=== PATIENT | male | born 1960 | race Caucasian/White ===

== ENCOUNTER 2020-08-28 10:25 | Outpatient (REF) | payer OTHER, SELFPAY ==
[2020-08-28 13:54] LABS: MANUAL DIFF FLAG NO
[2020-08-28 14:04] LABS: Basophils Percent Auto 0.5 % (0-2); Eosinophils Absolute Auto 0.2 X10*3/uL (0.0-0.4); Eosinophils Percent Auto 2.6 % (0-4); Hemoglobin 13.7 g/dl (14.0-18.0); Imm Gran Abs Auto 0.02 X10*3/uL (0.00-0.03); Imm Gran Pct Auto 0.3 % (0.0-0.4); Lymphocytes Absolute Auto 1.3 X10*3/uL (1.2-4.9); Lymphocytes Percent Auto 16.8 % (20-40); Mean Corpuscular HGB Conc 33.4 g/dl (31.0-36.0); Mean Corpuscular Hemoglobin 30.4 pg (27.0-33.0); Mean Corpuscular Volume 91.1 fL (80-98); Mean Platelet Volume 10.8 fL (9.4-12.4); Monocytes Absolute Auto 0.4 X10*3/uL (0.1-1.2); Neutrophils Absolute Auto 5.7 X10*3/uL (2.0-8.3); Neutrophils Percent Auto 74.8 % (45-73); Platelet Count 191 X10*3/uL (160-400); Red Cell Distribution Width 12.5 % (11.0-16.0); White Blood Count 7.6 X10*3/uL (4.8-10.8)
[2020-08-28 14:21] LABS: Alanine Aminotransferase 20 U/L (0-40); Albumin Level 4.2 g/dL (3.5-5.0); Alkaline Phosphatase 60 U/L (39-117); Amylase 39 U/L (28-100); Anion Gap 12 (12-20); Aspartate Amino Transferase 21 U/L (5-37); Bilirubin Direct 0.5 mg/dL (0.0-0.5); Bilirubin Total 1.3 mg/dL (0.0-1.0); Blood Urea Nitrogen 17 mg/dL (9-16); C Reactive Protein 0.72 mg/dL (< or = 0.50); Carbon Dioxide 26 mmol/L (22-29); Chloride 103 mmol/L (96-108); Estimated Glomerular Filt Rate > 60; Glucose Random 90 mg/dL (60-115); Lipase 12 U/L (8-78); Potassium 4.3 mmol/L (3.3-5.1); Sodium 137 mmol/L (135-145); Total Protein 6.8 g/dL (6.5-8.0)
[2020-08-28 14:47] LABS: Erythrocyte Sedimentation Rate 5 MM/HR (0-15); TSH reflex Free T4 0.51 uIU/mL (0.32-4.0)
[2020-08-29 14:21] LABS: Immunoglobulin A 226 mg/dL (70-320)
[2020-09-01 15:17] LABS: Gliadin Deamidated IgA Ab 6 Units; Gliadin Deamidated IgG Ab 7 Units; Transglutaminase Ab IgG 2 U/mL; Transglutaminase IgA 1 U/mL
[2020-09-09 13:13] LABS: Endomysial IgA Antibody Negative (Negative)
== END 2020-08-28 10:26 | disposition home or self-care (01) ==
LOC: HO.10HDL 10:25
PROVIDERS: Visit Provider Internal Medicine
DX: R10.84 Generalized abdominal pain (principal)
CPT/HCPCS: 36415; 80051; 80076; 82150; 82565; 82784; 82947; 83516; 83690; 84443; 84520; 85025; 85652; 86140; 86255; 86256

== ENCOUNTER 2020-10-08 15:10 | Outpatient (REF) | payer OTHER, SELFPAY ==
[2020-10-08 16:09] LABS: Blood Urea Nitrogen 21 mg/dL (9-16); Estimated Glomerular Filt Rate > 60
== END 2020-10-08 15:11 | disposition home or self-care (01) ==
LOC: HO.LAB 15:10
PROVIDERS: Visit Provider Internal Medicine
DX: R19.7 Diarrhea, unspecified (principal)
CPT/HCPCS: 36415; 82565; 84520

== ENCOUNTER 2020-10-13 08:50 | Outpatient (REF) | payer OTHER, SELFPAY ==
--- NOTE | ~2020-10-13 | CT_ITS ---
EXAMINATION: CT ABDOMEN AND PELVIS WITH CONTRAST CLINICAL INFORMATION: Abdominal pain. COMPARISON: None TECHNIQUE: Multidetector volumetric images were obtained from the superior aspect of the liver through the pubic symphysis following administration 85 mL of Omnipaque 350 intravenous contrast. Sagittal and coronal reformatted images were obtained on the technologist's workstation. Oral contrast: No. This CT examination was performed using dose optimization techniques as appropriate, variously including the following: *Automated exposure control *Adjustment of mA and/or kV according to patient size (this includes techniques or standardized protocols for targeted exams where dose is matched to indication/reason for exam; i.e. extremities or head) *Use of iterative reconstruction technique DLP: 502 mGy-cm FINDINGS: LUNG BASES: The visualized lung bases are unremarkable. LIVER, GALLBLADDER, AND BILIARY TREE: No focal liver lesion. Intrahepatic and extrahepatic biliary ducts are within normal limits. Gallbladder is surgically absent. PANCREAS: Unremarkable. No acute inflammatory changes. SPLEEN: Unremarkable. ADRENAL GLANDS: Unremarkable. KIDNEYS AND URETERS: 3 mm right renal lower pole nonobstructing calculus. No ureteral calculi. No hydronephrosis. Symmetric enhancement of bilateral kidneys. No suspicious renal lesions. BLADDER: Unremarkable. GASTROINTESTINAL TRACT: Stomach is nondistended precluding evaluation. The oral contrast opacifies the mid/distal small bowel loops. The proximal small bowel loops are nondilated, without oral contrast within them, limiting evaluation. No acute findings appreciated within the small bowel. Scattered colonic diverticula without evidence of diverticulitis. No colonic wall thickening or pericolonic inflammatory changes are seen. Appendix appears unremarkable. No free fluid. ABDOMINAL WALL: No significant hernia is appreciated. LYMPH NODES: No pathologically enlarged lymph nodes evident in the abdomen or pelvis. VASCULAR: No aneurysmal dilatation of the aorta. PELVIC VISCERA: Prostate measures 5.6 cm transverse. OSSEOUS STRUCTURES: Spinal fusion hardware L4-S1. Multilevel degenerative changes in the spine. CT/CT abdomen pelvis w con IMPRESSION: 1. No acute findings identified in the abdomen or pelvis. 2. Status post-cholecystectomy. 3. Right renal lower pole 3 mm nonobstructing calculus. No hydronephrosis. 4. Scattered colonic diverticula without evidence of diverticulitis. Nonobstructive bowel gas pattern. 5. Enlarged prostate. 6. Spinal fusion hardware at L4-S1.
[2020-10-13] MEDS: iohexoL 350 MG/ML 100 ML INFUS..BTL IV (12:25)
== END 2020-10-13 08:51 | disposition home or self-care (01) ==
LOC: HO.CT 08:50
PROVIDERS: Visit Provider Internal Medicine
DX: R10.84 Generalized abdominal pain (principal)
CPT/HCPCS: 74177; Q9967

== ENCOUNTER 2023-09-14 23:36 | Emergency (ER) | payer OTHER, SELFPAY ==
--- NOTE | ~2023-09-14 | XR_ITS ---
EXAMINATION: XR CHEST CLINICAL INFORMATION: Cough with question of pneumonia. COMPARISON: None available. TECHNIQUE: Frontal view of the chest was obtained. FINDINGS: No significant abnormality is noted involving the heart, lungs, mediastinum, bony thorax or soft tissues. XR/XR chest 1V IMPRESSION: Unremarkable examination.
[2023-09-14 23:42] VITALS: BP 130/85; PULSE 100; RESP 26; TEMP 36.4; O2SAT 95
--- NOTE | 2023-09-14 23:42 | ECG_ITS ---
Test Reason : SOB Blood Pressure : / mmHG Vent. Rate : 097 BPM Atrial Rate : 097 BPM P-R Int : 132 ms QRS Dur : 082 ms QT Int : 356 ms P-R-T Axes : 069 063 060 degrees QTc Int : 452 ms Normal sinus rhythm Normal ECG When compared with ECG of 13-AUG-2005 05:04, Vent. rate has increased BY 46 BPM Referred By: Lexy Avelar Electronically Signed By:Merrill Calderon
[2023-09-14 23:44] VITALS: BP 148/58; PULSE 102; O2SAT 99; BMI 26.4
--- NOTE | 2023-09-14 23:45 | ED.SOB ---
HPI - SOB/Dyspnea General Chief Complaint: Dyspnea Stated Complaint: difficulty breathing Time Seen by Provider: 09/14/23 23:38 Source: patient and EMS Mode of arrival: EMS Limitations: no limitations History of Present Illness HPI Narrative: Patient comes to the emergency room complaining of shortness of breath and coughing for 2-3 days days. Patient states that he has been using his albuterol and DuoNeb nebulizations at home without any relief. EMS gave the patient a DuoNeb in route to the hospital. Patient states that he is history of asthma, unclear if he has COPD but the patient's knowledge she has never been diagnosed, admits to vaping. Patient denies fever or chills, complaining of wheezing and worsening cough. Per EMS, oxygen saturation has been 92% and above, on arrival 95% on room air Related Data Allergies Allergy/AdvReac Type Severity Reaction Status Date / Time Iodinated Contrast Media Allergy Unknown ASTHMATIC Verified 09/15/23 00:36 [IV DYE, IODINE CONTAINING CONTRAST ] From KEFLEX Allergy Unknown ASTHMATIC Uncoded 03/06/20 16:59 Review of Systems Review of Systems: Constitutional : No Weight loss, No Fever, No Chills, No Night Sweats, No Fatigue, No Malaise ENT/Mouth : No Hearing loss, No Ear Pain, No Nasal Congestion, No Sinus Pain, No Hoarseness, No sore throat, No Rhinorrhea, No Swallowing Difficulty Eyes: No Eye Pain, No Swelling, No Redness, No Foreign Body, No Discharge, No Vision Changes Cardiovascular : No Chest Pain, No SOB, No Dyspnea on Exertion, No Orthopnea, No Edema, No Palpitations Respiratory : Complaining of cough, wheezing Gastrointestinal : No Nausea, No Vomiting, No Diarrhea, No Constipation, No abdominal Pain, No Hematochezia, No Melena Genitourinary : no irregular bleeding, No Dysuria, No Urinary Frequency, No Hematuria, No Urinary Incontinence, No Urgency, No Flank Pain, No Urinary Flow Changes, No Hesitancy Musculoskeletal : No joint pain, No Myalgias, No Joint Swelling Skin : No Skin Lesions, No rash Neuro : No Weakness, No Numbness, No Paresthesias, No Loss of Consciousness, No Dizziness, No Headache Psych : No Anxiety/Panic, No Depression, No SI/HI/AH/VH, No Social Issues, Heme/Lymph: No Bruising, No Bleeding,No Lymphadenopathy Endocrine : No Polyuria, No Polydipsia, No Temperature Intolerance [facility] Past Medical History Medical History (Updated 09/15/23 @ 00:42 by Lexy Avelar MD) Asthma Social History Social History Smoked in Last 30 Days: Yes Use of substances other than those prescribed or required for medical reasons: Yes Substance Use Type: Marijuana Advance Directives: No Advance Directives Information Provided: Yes Physical Exam Vital Signs: Vital Signs: Last Vital Signs Temp 97.6 F 09/14/23 23:42 Pulse 94 09/15/23 00:12 Resp 24 H 09/15/23 00:12 BP 130/85 09/14/23 23:42 Pulse Ox 95 09/14/23 23:42 O2 Del Method Room Air 09/14/23 23:42 BMI result Body Mass Index 26.4 Const: Other: Appearance: Alert. Oriented X3. No acute distress. Eyes: Pupils equal, round and reactive to light. ENT: Pharynx normal. Neck: Normal inspection. Neck supple. No lymph nodes noted. No crepitus CVS: Normal heart rate and rhythm. Pulses normal. Normal S1 and S2 Respiratory: Tachypneic , respiratory rate between 25 and 35, bilateral wheezing, moderate air movement, no rales or crackles Abdomen: Soft and nontender. No rigidity. No distention. Skin: Skin warm and dry. Normal skin color. Normal skin turgor. Extremities: No lower extremity edema. No Lacerations. No Rash Neuro: Oriented X 3. No motor deficit. No sensory deficit. Moving all extremities. No slurred speech. CN 2 through 12 grossly intact Psych: calm, cooperative, normal affect Course Course Course Narrative: -patient receiving Solu-Medrol, magnesium and a bronch treatment -all of patient's labs and imaging pending Medications Administered Discontinued Medications Generic Name Dose Route Start Last Admin Trade Name Freq PRN Reason Stop Dose Admin Albuterol Sulfate 7.5 mg/ 10 mg 09/15/23 00:03 09/15/23 00:11 Albuterol Sulfate 2.5 mg INHALE 09/15/23 00:04 10 mg ONCE ONE Administration Magnesium Sulfate 2 gm in 50 mls @ 25 mls/hr 09/14/23 23:44 09/14/23 23:55 Magnesium Sulfate/H2o IV 09/15/23 01:43 25 mls/hr ONCE ONE Administration Methylprednisolone Sodium Succinate 125 mg 09/14/23 23:44 09/14/23 23:55 Methylprednisolone Sod Succ 125 Mg/2 Ml Vial IVPUSH 09/14/23 23:45 125 mg ONCE ONE Administration Medical Decision Making Medical Decision Making [facility] Narrative: My interpretation of labs: Normal hematology and chemistry, lactic acid 1.6, pCO2 37, BNP 23, troponin 4.1. LFTs slightly elevated, patient states that he has a liver ultrasound scheduled for tomorrow -RSV, flu and COVID pending -my interpretation of EKG: Normal sinus rhythm, heart rate 97, no ST segment depression or elevation, no T-wave inversion, QTC 452 -my interpretation of chest x-ray, no infiltrate -of note, shortly the system will be in down time, please see paper chart for remaining of medical decisions, results and discharge Differential Diagnosis Differential Diagnoses: The differential diagnosis associated with the presentation includes (Viral syndrome, asthma exacerbation, COVID, influenza) Admission/Observation Consideration of admission/observation: Escalation of care including admission/observation considered (Patient came in wheezing, admission considered) Lab Data 09/14/23 23:53 09/14/23 23:53 Labs: Lab Results 09/14/23 09/15/23 Range/Units 23:53 00:09 WBC 6.2 (4.8-10.8) X10*3/uL RBC 4.39 L (4.60-5.80) X10*6/uL Hgb 13.9 L (14.0-18.0) g/dl Hct 40.1 L (42.0-52.0) % MCV 91.3 (80.0-98.0) fL MCH 31.7 (27.0-33.0) pg MCHC 34.7 (31.0-36.0) g/dl RDW 12.4 (11.0-16.0) % Plt Count 189 (160-400) X10*3/uL MPV 9.9 (9.4-12.4) fL Immature Gran % (Auto) 0.5 H (0.0-0.4) % Neut % (Auto) 62.9 (45-73) % Lymph % (Auto) 23.5 (20-40) % [place] % (Auto) 4.2 (2-11) % Eos % (Auto) 8.1 H (0-4) % Baso % (Auto) 0.8 (0-2) % Lymph # (Auto) 1.5 (1.2-4.9) X10*3/uL [place] # (Auto) 0.3 (0.1-1.2) X10*3/uL Eos # (Auto) 0.5 H (0.0-0.4) X10*3/uL Baso # (Auto) 0.1 (0.0-0.2) X10*3/uL Abs Immat Gran (auto) 0.03 (0.00-0.03) X10*3/uL Absolute Neuts (auto) 3.9 (2.0-8.3) x10*3/uL Absolute Nucleated RBC 0.000 (0.0-0.012) X10*3/uL Nucleated RBC % (auto) 0.0 (0.0-0.2) /100WBC PT 11.3 (11.1-13.3) SEC INR 0.9 (0.9-1.1) VBG pH 7.43 (7.32-7.43) VBG pCO2 37 mmHg VBG pO2 113 mmHg VBG HCO3 25 (22-26) mmol/L VBG O2 Saturation 99.0 % VBG Base Excess 1.4 mmol/L Sodium 140 (135-145) mmol/L Potassium 3.6 (3.3-5.1) mmol/L Chloride 106 (96-108) mmol/L Carbon Dioxide 24 (22-29) mmol/L Anion Gap 14 (12-20) BUN 13 (9-16) mg/dL Creatinine 0.86 (0.5-1.4) mg/dL Estim Creat Clear Calc 95.2 Estimated GFR > 60 Random Glucose 98 (60-115) mg/dL Lactic Acid 1.6 (0.5-2.0) mmol/L Calcium 8.9 (8.4-10.2) mg/dL Total Bilirubin 0.4 (0.0-1.0) mg/dL Direct Bilirubin 0.2 (0.0-0.5) mg/dL AST 43 H (5-37) U/L ALT 57 H (0-40) U/L Alkaline Phosphatase 63 (39-117) U/L Troponin I High Sens 4.1 (<3.5-35.0) ng/L B-Natriuretic Peptide 23 (<100) pg/mL Total Protein 6.8 (6.5-8.0) g/dL Albumin 4.1 (3.5-5.0) g/dL Influenza Type A (PCR) NEGATIVE (Negative) Influenza Type B (PCR) NEGATIVE (Negative) RSV RNA Qual (PCR) NEGATIVE (Negative) SARS-CoV-2 RNA (RT-PCR) NEGATIVE (Negative) Critical Care Time Critical Care Time Critical Care Time: Yes Total Critical Care Time: 45 Attestation: I have personally provided critical care time. Time includes review of lab data, radiology results, discussion with consultants, and monitoring for potential decompensation. Intervention performed as documented. Discharge Plan Discharge Clinical Impression: Asthma Patient Disposition: Home, Self-Care
[2023-09-14] MEDS: methylPREDNISolone Sod Succ 125 MG/2 ML VIAL IVPUSH (23:55)
[2023-09-14] MEDS: Magnesium Sulfate/H2O 2 GM/50 ML PIGGYBACK IV (23:55)
[2023-09-15 00:07] LABS: MANUAL DIFF FLAG NO
[2023-09-15] MEDS: Albuterol Sulfate 7.5 MG, Albuterol Sulfate (0.083%) 2.5 MG 10 MG INHALE (00:11)
[2023-09-15 00:12] VITALS: PULSE 94; RESP 24; O2SAT 94
[2023-09-15 00:12] LABS: Basophils Absolute Auto 0.1 X10*3/uL (0.0-0.2); Basophils Percent Auto 0.8 % (0-2); Eosinophils Absolute Auto 0.5 X10*3/uL (0.0-0.4); Eosinophils Percent Auto 8.1 % (0-4); Hematocrit 40.1 % (42.0-52.0); Hemoglobin 13.9 g/dl (14.0-18.0); Imm Gran Abs Auto 0.03 X10*3/uL (0.00-0.03); Imm Gran Pct Auto 0.5 % (0.0-0.4); Lymphocytes Absolute Auto 1.5 X10*3/uL (1.2-4.9); Lymphocytes Percent Auto 23.5 % (20-40); Mean Corpuscular HGB Conc 34.7 g/dl (31.0-36.0); Mean Corpuscular Hemoglobin 31.7 pg (27.0-33.0); Mean Corpuscular Volume 91.3 fL (80.0-98.0); Mean Platelet Volume 9.9 fL (9.4-12.4); Monocytes Absolute Auto 0.3 X10*3/uL (0.1-1.2); Monocytes Percent Auto 4.2 % (2-11); Neutrophils Absolute Auto 3.9 x10*3/uL (2.0-8.3); Neutrophils Percent Auto 62.9 % (45-73); Platelet Count 189 X10*3/uL (160-400); Red Blood Count 4.39 X10*6/uL (4.60-5.80); Red Cell Distribution Width 12.4 % (11.0-16.0); White Blood Count 6.2 X10*3/uL (4.8-10.8)
[2023-09-15 00:16] LABS: INTERNATIONAL NORM RATIO 0.9 (0.9-1.1); Prothrombin Time 11.3 SEC (11.1-13.3)
[2023-09-15 00:22] LABS: Lactic Acid 1.6 mmol/L (0.5-2.0)
[2023-09-15 00:23] LABS: Venous Blood Gas Refer to POC result
[2023-09-15 00:24] LABS: VBG Base Excess 1.4 mmol/L; VBG HCO3 25 mmol/L (22-26); VBG pCO2 37 mmHg; VBG pH 7.43 (7.32-7.43); VBG pO2 113 mmHg
[2023-09-15 00:27] LABS: Alanine Aminotransferase 57 U/L (0-40); Albumin Level 4.1 g/dL (3.5-5.0); Alkaline Phosphatase 63 U/L (39-117); Anion Gap 14 (12-20); Aspartate Amino Transferase 43 U/L (5-37); Bilirubin Direct 0.2 mg/dL (0.0-0.5); Bilirubin Total 0.4 mg/dL (0.0-1.0); Blood Urea Nitrogen 13 mg/dL (9-16); Calcium 8.9 mg/dL (8.4-10.2); Carbon Dioxide 24 mmol/L (22-29); Chloride 106 mmol/L (96-108); Creatinine Clr Calc Pharmacy 95.2; Estimated Glomerular Filt Rate > 60; Glucose Random 98 mg/dL (60-115); Potassium 3.6 mmol/L (3.3-5.1); Sodium 140 mmol/L (135-145); Total Protein 6.8 g/dL (6.5-8.0)
[2023-09-15 00:31] LABS: B Type Natriuretic Peptide 23 pg/mL (<100); Troponin-I High Sensitivity 4.1 ng/L (<3.5-35.0)
--- NOTE | 2023-09-15 00:35 | PC.NURSE ---
this rn assumed care of pt from ems. this rn had to replace iv placed by ems. this rn placed 20g IV in l AC. pt tolerated well. pt medicated according to mar
[2023-09-15 00:48] LABS: Influenza A PCR NEGATIVE (Negative); Influenza B PCR NEGATIVE (Negative); Resp Syncy Virus RNA Qual PCR NEGATIVE (Negative); SARS COV2 PCR INHOUSE NEGATIVE (Negative)
--- NOTE | 2023-09-15 12:56 | PC.NURSE ---
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 this nurse instructed the patient to have the pharmacy call this facility to have the order changed for him by a provider.
--- NOTE | 2023-09-15 13:00 | PC.NURSE ---
pharmacy called the ed, provider changed the order so pt could take 20 mg tablets for a total of 60mg.
== END 2023-09-15 03:04 | disposition home or self-care (01) ==
PROVIDERS: Emergency Provider Emergency Medicine
DX: J45.909 Unspecified asthma, uncomplicated (principal); Z11.52 Encounter for screening for COVID-19; Z20.828 Contact with and (suspected) exposure to other viral communicable diseases
CPT/HCPCS: 0241U; 36415; 71045; 80048; 80076; 82803; 83605; 83880; 84484; 85025; 85610; 87040; 93005; 94640; 96374; 96375; 99284; 99285; J2930; J3475

== ENCOUNTER → 2023-09-14 23:42 | Outpatient (BNV) | payer OTHER, SELFPAY | PROVIDERS: Emergency Provider Emergency Medicine; Visit Provider Internal Medicine Cardiovascular Disease | DX: R06.02 Shortness of breath (principal) | CPT/HCPCS: 93010 ==

== ENCOUNTER 2023-11-02 01:51 | Emergency (ER) | payer OTHER, SELFPAY ==
[2023-11-02] VITALS (9 sets, daily range): BP systolic 96–140; BP diastolic 66–88; PULSE 85–99; RESP 14–30; TEMP 36.5–36.7; O2SAT 92–99; BMI 25.1
--- NOTE | 2023-11-02 | ECG_ITS ---
Test Reason : ASTHMA Blood Pressure : / mmHG Vent. Rate : 091 BPM Atrial Rate : 091 BPM P-R Int : 134 ms QRS Dur : 080 ms QT Int : 376 ms P-R-T Axes : 070 064 077 degrees QTc Int : 462 ms Poor data quality Sinus rhythm Otherwise normal ECG When compared with ECG of 14-SEP-2023 23:47, No significant changes seen Referred By: Generic ED Physician Electronically Signed By:PATSY HERNANDEZ MD
--- NOTE | ~2023-11-02 | XR_ITS ---
EXAMINATION: XR CHEST CLINICAL INFORMATION: Shortness of breath. COMPARISON: 09/14/2023 TECHNIQUE: Frontal view of the chest was obtained. FINDINGS: No significant abnormality is noted involving the heart, lungs, mediastinum, bony thorax or soft tissues. XR/XR chest 1V IMPRESSION: Unremarkable examination.
[2023-11-02] MEDS: methylPREDNISolone Sod Succ 125 MG/2 ML VIAL IVPUSH (02:32)
[2023-11-02] MEDS: Albuterol Sulfate 5 MG, Albuterol/Iprat 2.5/0.5MG 3 ML 3 ML INHALE (02:36)
[2023-11-02] MEDS: Magnesium Sulfate/H2O 2 GM/50 ML PIGGYBACK IV (02:39)
[2023-11-02] MEDS: EPINEPHrine 1 MG/ML VIAL 0.3 MG IM (02:39)
[2023-11-02] MEDS: Famotidine/PF 20 MG/2 ML VIAL IVPUSH (02:39)
[2023-11-02 02:51] LABS: MANUAL DIFF FLAG NO
[2023-11-02 02:52] LABS: Basophils Absolute Auto 0.1 X10*3/uL (0.0-0.2); Basophils Percent Auto 0.8 % (0-2); Eosinophils Absolute Auto 0.3 X10*3/uL (0.0-0.4); Eosinophils Percent Auto 3.1 % (0-4); Hematocrit 41.8 % (42.0-52.0); Hemoglobin 14.7 g/dl (14.0-18.0); Imm Gran Abs Auto 0.02 X10*3/uL (0.00-0.03); Imm Gran Pct Auto 0.3 % (0.0-0.4); Lymphocytes Absolute Auto 1.1 X10*3/uL (1.2-4.9); Lymphocytes Percent Auto 13.7 % (20-40); Mean Corpuscular HGB Conc 35.2 g/dl (31.0-36.0); Mean Corpuscular Hemoglobin 32.2 pg (27.0-33.0); Mean Corpuscular Volume 91.5 fL (80.0-98.0); Monocytes Absolute Auto 0.4 X10*3/uL (0.1-1.2); Monocytes Percent Auto 4.5 % (2-11); Neutrophils Absolute Auto 6.2 x10*3/uL (2.0-8.3); Neutrophils Percent Auto 77.6 % (45-73); Platelet Count 192 X10*3/uL (160-400); Red Blood Count 4.57 X10*6/uL (4.60-5.80); Red Cell Distribution Width 12.8 % (11.0-16.0)
--- NOTE | 2023-11-02 02:52 | MHC.EDTECH ---
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
--- OUTSIDE RECORDS SUMMARY | 2023-11-02 02:52 | XMS_ITS | Patient Health Record ---
Author Organization [facility] Address [address] [place] [id number] Care Team Providers Care Ball Winder Name Role Phone Sp BENTON, Atul Primary Care Provider UnavailTheo Parikh Unavailable [phone] ALLERGIES Allergen (clinical drug ingredient) Drug/Non Drug Allergy documented on EMR Reaction Allergy Type Onset Date Status Keflex Unknown Drug Allergy Active IVP DYE (uncoded) Unknown Allergy Ac tive REASON FOR REFERRAL No Information MEDICATIONS Medication SIG (Take, Route, Frequency, Duration) Notes Start Date End Date Status Omeprazole 20 MG 1 capsule 30 minutes before morning meal Orally Once a day for 30 day(s) Not daily Active Excedrin Extra Strength PRN Active Multivitamin Active Albuterol Active IMMUNIZATIONS Vaccine Route Administration Date Status Comme nts Influenza Unknown 11/06/2019 Refused Influenza Unknown 04/30/2020 Refused SOCIAL HISTORY Tobacco Use: Social History Observation Description Date Details (start date - stop date) Former Smoker NA - NA Sex Assigned At : Social History Observation Description Sex Assigned At Unknown Tobacco Use/Smoking Question Answer Notes Patient is a former smoker How long has it been since you last smoked? > 10 years Alcohol Screen Question Answer Notes Did you have a drink contain ing alcohol in the past year? Yes How often did you have a dri nk containing alcohol in the past year? 2 to 3 times a week (3 points) How many drinks did you have on a typical day when you were drinking in the past year? 3 or 4 drinks (1 point) Points 4 Interpretation Positive PROBLEMS Problem Type ICD Code Onset Dates Problem Status W/U Status Risk SNOMED Code Notes Problem Gastroesophageal reflux disease, esophagitis presence not specified (K21.9) Active confirmed 082745829 Problem History of colon polyps (Z86.010) Active confirmed 470118881 Problem Encounter for screening for malignant neoplasm of colon (Z12.11) Active confirmed 667634636 Problem Family history of colon cancer (Z80.0) Active confirmed 482639054 Problem Diarrhea, unspecified type (R19.7) Active confirmed 12334405 Problem Irritable bowel syndrome (K58.9) Active confirmed Irritable bowel syndrome (68944466) Problem Abdominal pain, acute, generalized (R10.84) Active confirmed Generalized abdominal pain (999241024) Problem Gastritis (K29.70) Active confirmed Gas tritis (6936313) Problem Irritable bowel syndrome with diarrhea (K58.0) Active confirmed 054835098 PLAN OF TREATMENT Pending Test Test Name Order Date CHEM 7 PROFILE 08/28/2020 BUN 09/30/2020 CREATININE 09/30/2020 LIVER PROFILE 08/28/2020 AMYLASE 08/28/2020 LIPASE 08/28/2020 CRP 08/28/2020 CBC w DIFF 08/28/2020 SED RATE (ESR) 08/28/2020 CELIAC PANEL #10 08/28/2020 CELIAC PANEL #10 04/30/2020 CT ABD & PELVIS WITH CONTRAST 08/28/2020 CT ABD & PELVIS WITH PO CONT ONLY 2020 TSH REFLEX FREE T4 08/28/2020 Future Test Test Name Order Date UPPER GI ENDOSCOPY 11/06/2019 COLONOSCOPY 11/06/2019 Insurance Providers Payer Name Payer Address Payer Phone Subscriber Number Group Number Insured Name Patient Relationship to Insured Coverage Start Date Coverage End Date [facility] [address] [place] [address] [id number] BIANCA ACOSTA Self - patient is the insured MEDICAL (GENERAL) HISTORY Medical History History ICD Code Kidney stones Asthma Colonoscopies at age 49 and 54 with pati feliciano of polyps GERD-had a previous EGD 10 yrs ago Hx of Bipolar -stable off meds Denies CT,DM,CVA,Lung disease,renal dise ase EGD 10/2019--erosive gastriti s with biopsies negative for H. pylori. Small hiatal hernia but no esophagitis nor Cantu's esophagus Colonoscopy 10/2019-nonadenomatous polyps , no inflammatory bowel disease Presumed IBS as a cause of h is abdominal discomfort and chronic GI complaints--negative CT scan and celiac disease laboratories in spring Surgical History Surgery Date(Month/Year) Varicose veins right leg removed Umbilical Hernia repair Spinal fusion Cholecystectomy > 5 yrs ago
--- NOTE | 2023-11-02 02:57 | ED_ITS ---
HPI - Asthma General Chief Complaint: Dyspnea Stated Complaint: asthma attack Time Seen by Provider: 11/02/23 02:30 Source: patient Mode of arrival: ambulatory Limitations: no limitations History of Present Illness HPI Narrative: 63 yo male with PMH of asthma no prior intubations had MRI for liver lesion today around 4pm received contrast tonight started to wheeze but this was many hours after the contrast he does have prior allergy to IV dye from CT scan. He notes this asthma is much worse than his typical and did not respond to his nebs. He denies throat swelling. No recent URI MD complaint: asthma attack , shortness of breath and wheezing Onset (ago): hour(s) (few) Severity: severe Context: allergen exposure Associated symptoms: dry cough Treatments Prior to Arrival: inhaled bronchodilator Related Data Previous Rx's ?Medication ?Instructions ?Recorded epinephrine 0.3 mg/0.3 mL 0.3 mg (0.3 mL) IM Q10M PRN 11/02/23 injection, auto-injector anaphylaxis #2 ea prednisone 20 mg tablet 40 mg (2 x 20 mg) PO DAILY 5 days 11/02/23 #10 tabs Allergies Allergy/AdvReac Type Severity Reaction Status Date / Time Iodinated Contrast Media Allergy Unknown ASTHMATIC Verified 11/02/23 02:13 [IV DYE, IODINE CONTAINING CONTRAST ] From [facility] Allergy Unknown ASTHMATIC Uncoded 11/02/23 02:13 Review of Systems 2 Review of Systems: Constitutional : No Fever, No Chills ENT/Mouth : No Hoarseness, No sore throat, No Rhinorrhea Eyes: No Redness, No Discharge, No Vision Changes Cardiovascular : No Chest Pain, positive SOB, positive Dyspnea on Exertion, No Edema Respiratory : positive Cough, No Sputum, positive Wheezing, Gastrointestinal : No Nausea, No Vomiting, No Diarrhea, No abdominal Pain Genitourinary : No Dysuria, No Hematuria Musculoskeletal : No joint pain, No Myalgias Skin : No rash Neuro : No Weakness, No Numbness, No Headache Psych : No anxiety, depression Heme/Lymph: No Bruising, No Bleeding Endocrine : No Polyuria, No Polydipsia All other systems reviewed and are negative [facility] Past Medical History Attestation statement: The following information was validated with the patient. Source: old records reviewed Medical History Asthma Social History Social History Smoked in Last 30 Days: No Use of substances other than those prescribed or required for medical reasons: No Substance Use Type: Marijuana Advance Directives: No Advance Directives Information Provided: No Physical Exam 2 Vital Signs: Vital Signs: Last Vital Signs Temp 98.1 F 11/02/23 06:22 Pulse 99 11/02/23 06:22 Resp 14 11/02/23 06:22 BP 107/68 11/02/23 06:22 Pulse Ox 93 11/02/23 06:22 O2 Del Method Room Air 11/02/23 06:22 Oxygen Flow Rate 10 11/02/23 02:11 BMI result Body Mass Index 25.1 Appearance: Alert. Oriented X3. moderate acute distress. Eyes: Pupils equal, round and reactive to light. ENT: Pharynx normal. Neck: Normal inspection. Neck supple. CVS: Normal heart rate and rhythm. Pulses normal. Respiratory: moderate respiratory distress - tachypnea and retractions. Breath sounds very dminished throughout Abdomen: Soft and nontender. Skin: Skin warm and dry. Normal skin color. Normal skin turgor. Extremities: No lower extremity edema. No calf ttp Neuro: Oriented X 3. No motor deficit. No sensory deficit. Course Course Course Narrative: wheezing improved 97% on RA now has nausea and leg cramps very anxious no CP I am going to order zofran and IV ativan Reevaluation(s) Reevaluation #1: symptoms fully resolved will monitor until the AM states he feels much better Medications Administered Discontinued Medications Generic Name Dose Route Start Last Admin Trade Name Diana PRN Reason Stop Dose Admin Albuterol Sulfate 2.5 mg/ 5 mg 11/02/23 02:50 11/02/23 02:59 Albuterol Sulfate 2.5 mg INHALE 11/02/23 02:51 5 mg ONCE ONE Administration Albuterol Sulfate 5 mg/ 0 mg 11/02/23 02:30 11/02/23 02:36 Albuterol/Ipratropium 3 ml INHALE 11/02/23 02:31 2 each ONCE ONE Administration Epinephrine 0.3 mg 11/02/23 02:35 11/02/23 02:39 Epinephrine 1 Mg/Ml Vial IM 11/02/23 02:36 0.3 mg STAT STA Administration Famotidine 20 mg 11/02/23 02:35 11/02/23 02:39 Famotidine/Pf 20 Mg/2 Ml Vial IVPUSH 11/02/23 02:36 20 mg ONCE ONE Administration Magnesium Sulfate 2 gm in 50 mls @ 150 mls/hr 11/02/23 02:35 11/02/23 02:59 Magnesium Sulfate/H2o IV 11/02/23 02:54 Infused ONCE ONE Infusion Sodium Chloride 1,000 mls @ 999 mls/hr 11/02/23 03:38 11/02/23 04:58 Ns IV 11/02/23 04:38 Infused .Q1H1M ONE Infusion Lorazepam 0.5 mg 11/02/23 03:43 11/02/23 03:48 Lorazepam 2 Mg/Ml Vial IVPUSH 11/02/23 03:44 0.5 mg STAT STA Administration Methylprednisolone Sodium Succinate 125 mg 11/02/23 02:23 11/02/23 02:32 Methylprednisolone Sod Succ 125 Mg/2 Ml Vial IVPUSH 11/02/23 02:24 125 mg ONCE ONE Administration Ondansetron HCl 4 mg 11/02/23 03:38 11/02/23 03:48 Ondansetron Hcl 4 Mg/2 Ml Vial IVPUSH 11/02/23 03:39 4 mg ONCE ONE Administration Medical Decision Making Medical Decision Making MDM Narrative: 63 yo male with hx of asthma but this exacerbation is different and worse he is very tight and blames MRI contrast he may be right - he has no oral swelling but he is very tight. At this time given his presentation, nebs, IV steroids, IV pepcid, IV magnesium, basic labs and IM epi as he is in moderate distress and there is concern for allergic reaction. Will observe. Differential Diagnosis Differential Diagnoses: The differential diagnosis associated with the presentation includes asthma, allergic reaction Admission/Observation Consideration of admission/observation: Escalation of care including admission/observation considered observed for 4 hours symptoms resolved feels great states he wants to go home Lab Data MDM Lab Attestation statement: I reviewed the patient's lab results. 11/02/23 02:47 11/02/23 02:47 Labs: Lab Results 11/02/23 11/02/23 Range/Units 02:46 02:47 WBC 8.0 (4.8-10.8) X10*3/uL RBC 4.57 L (4.60-5.80) X10*6/uL Hgb 14.7 (14.0-18.0) g/dl Hct 41.8 L (42.0-52.0) % MCV 91.5 (80.0-98.0) fL MCH 32.2 (27.0-33.0) pg MCHC 35.2 (31.0-36.0) g/dl RDW 12.8 (11.0-16.0) % Plt Count 192 (160-400) X10*3/uL MPV 10.0 (9.4-12.4) fL Immature Gran % (Auto) 0.3 (0.0-0.4) % Neut % (Auto) 77.6 H (45-73) % Lymph % (Auto) 13.7 L (20-40) % [place] % (Auto) 4.5 (2-11) % Eos % (Auto) 3.1 (0-4) % Baso % (Auto) 0.8 (0-2) % Lymph # (Auto) 1.1 L (1.2-4.9) X10*3/uL [place] # (Auto) 0.4 (0.1-1.2) X10*3/uL Eos # (Auto) 0.3 (0.0-0.4) X10*3/uL Baso # (Auto) 0.1 (0.0-0.2) X10*3/uL Abs Immat Gran (auto) 0.02 (0.00-0.03) X10*3/uL Absolute Neuts (auto) 6.2 (2.0-8.3) x10*3/uL Absolute Nucleated RBC 0.000 (0.0-0.012) X10*3/uL Nucleated RBC % (auto) 0.0 (0.0-0.2) /100WBC Sodium 141 (135-145) mmol/L Potassium 3.7 (3.3-5.1) mmol/L Chloride 104 (96-108) mmol/L Carbon Dioxide 24 (22-29) mmol/L Anion Gap 17 (12-20) BUN 13 (9-16) mg/dL Creatinine 1.06 (0.5-1.4) mg/dL Estim Creat Clear Calc 77.2 Estimated GFR > 60 Random Glucose 106 (60-115) mg/dL Lactic Acid 1.6 (0.5-2.0) mmol/L Calcium 9.7 D (8.4-10.2) mg/dL Total Bilirubin 0.7 (0.0-1.0) mg/dL Direct Bilirubin 0.3 (0.0-0.5) mg/dL AST 31 (5-37) U/L ALT 34 (0-40) U/L Alkaline Phosphatase 68 (39-117) U/L Troponin I High Sens 5.4 (<3.5-35.0) ng/L Total Protein 7.0 (6.5-8.0) g/dL Albumin 4.2 (3.5-5.0) g/dL Lipase 16 (8-78) U/L Independent Interpretation I performed an independent interpretation of an: EKG and Plain X-Ray (normal ) Interpretation: Rate: 91 Rhythm: NSR [place]: normal Normal P waves. Normal AYALA. Normal QRS complex. ST T wave : no INGRIS qTC: normal prior studies: no acute ischemia The study has been interpreted contemporaneously by me. . Radiology Impression Discussion of test interpretation with radiology: I have reviewed the radiologist's reading. Independent Historian Clinical information obtained from an independent historian. History obtained from or confirmed by: EMS External Record Review External record reviewed: Inpatient record Prescription Management I considered prescription management with: Other Critical Care Time Critical Care Time Critical Care Time: Yes Total Critical Care Time: 60 Attestation: repeat assessments, IM epi, IV magnesium, anaphylaxis treatment, observation x 4 hours in ED I attest to this time spent taking care of the patient Discharge Plan Discharge Clinical Impression: Asthma with exacerbation Qualifiers: Asthma severity: moderate Asthma persistence: persistent Qualified Code(s): J 45.41 - Moderate persistent asthma with (acute) exacerbation Anaphylaxis Qualifiers: Encounter type: initial encounter Qualified Code(s): T78.2XXA - Anaphylactic shock, unspecified, initial encounter Patient Disposition: Home, Self-Care Instructions: Asthma (ED), General Allergic Reaction (ED) Additional Instructions: continue your nebs and steroids. carry epi pen. you need to be careful with dye from MRI I would consider this an allergic reaction to the dye. return for any worsening symptoms or concerns. Prescriptions: New prednisone 20 mg tablet 40 mg PO DAILY 5 Days Qty: 10 0RF epinephrine 0.3 mg/0.3 mL auto-injector 0.3 mg IM Q10M PRN (Reason: anaphylaxis) Qty: 2 0RF Rx Instructions: for 2 doses Print Language: Kittitian
[2023-11-02] MEDS: Albuterol Sulfate 2.5 MG, Albuterol Sulfate (0.083%) 2.5 MG 5 MG INHALE (02:59)
[2023-11-02 03:03] LABS: Lactic Acid 1.6 mmol/L (0.5-2.0)
[2023-11-02 03:08] LABS: Alanine Aminotransferase 34 U/L (0-40); Albumin Level 4.2 g/dL (3.5-5.0); Alkaline Phosphatase 68 U/L (39-117); Anion Gap 17 (12-20); Aspartate Amino Transferase 31 U/L (5-37); Bilirubin Direct 0.3 mg/dL (0.0-0.5); Bilirubin Total 0.7 mg/dL (0.0-1.0); Blood Urea Nitrogen 13 mg/dL (9-16); Calcium 9.7 mg/dL (8.4-10.2); Carbon Dioxide 24 mmol/L (22-29); Chloride 104 mmol/L (96-108); Creatinine Clr Calc Pharmacy 77.2; Estimated Glomerular Filt Rate > 60; Glucose Random 106 mg/dL (60-115); Lipase 16 U/L (8-78); Potassium 3.7 mmol/L (3.3-5.1); Sodium 141 mmol/L (135-145)
[2023-11-02 03:13] LABS: Troponin-I High Sensitivity 5.4 ng/L (<3.5-35.0)
[2023-11-02] MEDS: 0.9 % Sodium Chloride 1,000 ML 999 ML IV (03:47)
[2023-11-02] MEDS: LORazepam 2 MG/ML VIAL 0.5 MG IVPUSH (03:48)
[2023-11-02] MEDS: ondansetron HCL 4 MG/2 ML VIAL IVPUSH (03:48)
== END 2023-11-02 07:05 | disposition home or self-care (01) ==
PROVIDERS: Nurse Practitioner Family; Emergency Provider Emergency Medicine
DX: R06.02 Shortness of breath (principal); T50.8X5A Adverse effect of diagnostic agents, initial encounter; Y84.8 Other medical procedures as the cause of abnormal reaction of the patient, or of later complication, without mention of misadventure at the time of the procedure; Y92.9 Unspecified place or not applicable; J45.41 Moderate persistent asthma with (acute) exacerbation
CPT/HCPCS: 36415; 71045; 80048; 80076; 83605; 83690; 84484; 85025; 87040; 93005; 94640; 96361; 96365; 96372; 96375; 99285; J0171; J2060; J2405; J2919; J3475

== ENCOUNTER → 2023-11-02 02:13 | Outpatient (BNV) | payer OTHER, SELFPAY | PROVIDERS: Emergency Provider Emergency Medicine; Visit Provider Internal Medicine Cardiovascular Disease | DX: J45.909 Unspecified asthma, uncomplicated (principal) | CPT/HCPCS: 93010 ==

== ENCOUNTER 2023-11-22 10:02 | Outpatient (REF) | payer OTHER, SELFPAY ==
[2023-11-22 10:16] LABS: MANUAL DIFF FLAG NO
[2023-11-22 10:53] LABS: Basophils Percent Auto 0.9 % (0-2); Eosinophils Absolute Auto 0.2 X10*3/uL (0.0-0.4); Eosinophils Percent Auto 3.8 % (0-4); Hematocrit 41.3 % (42.0-52.0); Hemoglobin 14.5 g/dl (14.0-18.0); Imm Gran Abs Auto 0.01 X10*3/uL (0.00-0.03); Imm Gran Pct Auto 0.2 % (0.0-0.4); Lymphocytes Percent Auto 23.1 % (20-40); Mean Corpuscular HGB Conc 35.1 g/dl (31.0-36.0); Mean Corpuscular Hemoglobin 31.9 pg (27.0-33.0); Mean Corpuscular Volume 90.8 fL (80.0-98.0); Mean Platelet Volume 10.3 fL (9.4-12.4); Monocytes Absolute Auto 0.2 X10*3/uL (0.1-1.2); Monocytes Percent Auto 4.3 % (2-11); Neutrophils Percent Auto 67.7 % (45-73); Platelet Count 214 X10*3/uL (160-400); Red Blood Count 4.55 X10*6/uL (4.60-5.80); Red Cell Distribution Width 12.1 % (11.0-16.0); White Blood Count 4.4 X10*3/uL (4.8-10.8)
[2023-11-22 10:57] LABS: Prothrombin Time 12.3 SEC (11.1-13.3)
[2023-11-22 11:49] LABS: HBS Num1 0.49 mIU/mL (0-7.99); HBc Num1 0.08 S/CO (0.00-0.79); HBsAGNum1 0.26 S/CO (0.00-0.99); Hepatitis B Core Antibody Nonreactive (Nonreactive); Hepatitis B Surface Antigen Negative (Negative); ~HepC Num1 0.08 S/CO (0.00-0.79); ~Hepatitis B Surface Antibody NONREACTIVE (Nonreactive); ~Hepatitis C Antibody Nonreactive (Nonreactive)
[2023-11-22 11:53] LABS: Alanine Aminotransferase 37 U/L (0-40); Albumin Level 4.3 g/dL (3.5-5.0); Alkaline Phosphatase 57 U/L (39-117); Aspartate Amino Transferase 26 U/L (5-37); Bilirubin Direct 0.3 mg/dL (0.0-0.5); Bilirubin Total 0.9 mg/dL (0.0-1.0); Iron 115 mcg/dL (45-160); Percent Iron Saturation 42 % (15-50); Total Iron Binding Capacity 272 mcg/dL (228-428); Total Protein 6.9 g/dL (6.5-8.0); Unsaturated Iron Binding 157 ug/dL
[2023-11-22 12:11] LABS: Ferritin 444 ng/mL (20-250)
[2023-11-23 18:43] LABS: Alpha 1 Anti-trypsin 166 mg/dL (83-199)
[2023-11-23 21:43] LABS: Alpha Fetoprotein 2.9 ng/mL (<6.1)
[2023-11-24 15:09] LABS: Anti Nuclear Antibody Screen NEGATIVE (NEGATIVE)
[2023-11-25 22:53] LABS: Smooth Muscle Antibody <20 U (<20)
[2023-11-29 06:24] LABS: Mitochondrial Antibodies NEGATIVE (NEGATIVE)
[2023-12-09 03:14] LABS: FIB-ALT 31 U/L (9-46); FIB-Alpha-2-Macroglobulin 175 mg/dL (106-279); FIB-Apolipoprotein A1 182 mg/dL (94-176); FIB-GGT 17 U/L (3-70); FIB-Haptoglobin 131 mg/dL (43-212); FIB-Total Bilirubin 0.8 mg/dL (0.2-1.2); Liver Fibrosis Score 0.19; Liver Fibrosis Stage F0; Nec Inflam Act Grade A0; Nec Inflam Act Score 0.13
== END 2023-11-22 10:03 | disposition home or self-care (01) ==
LOC: HO.LAB 10:02
PROVIDERS: Visit Provider Internal Medicine
DX: R93.2 Abnormal findings on diagnostic imaging of liver and biliary tract (principal)
CPT/HCPCS: 36415; 80076; 81596; 82103; 82105; 82728; 83540; 85025; 85610; 86015; 86038; 86381; 86704; 86706; 86803; 87340

== ENCOUNTER 2023-12-11 03:28 | Emergency (ER) | payer OTHER, SELFPAY ==
--- NOTE | ~2023-12-11 | XR_ITS ---
EXAMINATION: XR CHEST CLINICAL INFORMATION: 11/02/2023. COMPARISON: 11/02/2023 TECHNIQUE: 2 views of the chest were obtained. FINDINGS: The cardiomediastinal silhouette is stable. Lung cleaning are hyperinflated. There is no focal lung consolidation or pleural effusion. The bony structures and soft tissues are unremarkable. XR/XR chest 2V IMPRESSION: Hyperinflated lung field similar to previous. No focal lung consolidation or evidence for significant pleural effusion.
[2023-12-11 03:35] VITALS: BP 113/78; PULSE 105; RESP 19; O2SAT 95; BMI 24.4
--- NOTE | 2023-12-11 03:36 | ED.GENADULT ---
HPI - General Adult General Chief complaint: Asthma Stated complaint: asthma attack Time Seen by Provider: 12/11/23 03:33 History of Present Illness ED Provider: Nila DEMARCO narrative: The patient is a 63-year-old male with a history of asthma who says that he has developed significant shortness of breath over the last couple of hours. He says that he thinks that his asthma must have been triggered by some kind of environmental allergies. He has had no fever. He says this feels similar to previous episodes of significant asthma. Related Data Previous Rx's ?Medication ?Instructions ?Recorded epinephrine 0.3 mg/0.3 mL 0.3 mg (0.3 mL) IM Q10M PRN 11/02/23 injection, auto-injector anaphylaxis #2 ea prednisone 20 mg tablet 40 mg (2 x 20 mg) PO DAILY 5 days 11/02/23 #10 tabs budesonide-formoterol HFA 80 1 inh inhalation BID #10.2 grams 12/11/23 mcg-4.5 mcg/actuation aerosol inhaler prednisone 20 mg tablet 20 mg PO DAILY #12 tabs 12/11/23 Allergies Allergy/AdvReac Type Severity Reaction Status Date / Time Iodinated Contrast Media Allergy Unknown ASTHMATIC Verified 12/11/23 03:38 [IV DYE, IODINE CONTAINING CONTRAST ] From [facility] Allergy Unknown ASTHMATIC Uncoded 12/11/23 03:38 [facility] Past Medical History Medical History Asthma Social History Social History Smoked in Last 30 Days: No Use of substances other than those prescribed or required for medical reasons: Yes Substance Use Type: Marijuana Advance Directives: No Advance Directives Information Provided: No Do you have a plan to hurt others: No Plan Physical Exam ED Vital Signs: Vital Signs - 24 hr 12/11/23 03:35 12/11/23 03:50 12/11/23 04:19 Temperature 97.7 F Pulse Rate 105 H 98 107 H Respiratory Rate 19 22 H 25 H Blood Pressure 113/78 Pulse Oximetry 95 94 Oxygen Delivery Method Room Air Room Air 12/11/23 04:59 Temperature Pulse Rate 107 H Respiratory Rate 25 H Blood Pressure Pulse Oximetry Oxygen Delivery Method BMI result Body Mass Index 24.4 Const Other: The patient is awake and alert. He looks quite short of breath. HENMT Other: Face is symmetrical. Mucous membranes moist. Airway is clear. Eyes Other: Pupils are round equal, no scleral icterus Neck Other: No obvious JVD. Resp Other: Markedly diminished air entry bilaterally with bilateral wheezes and prolonged expiratory phase bilaterally. Cardio Rate: tachycardic Rhythm: regular rhythm Heart sounds: S1 normal heart sound present and S2 normal heart sound present GI Other: Abdomen is soft and nontender Skin Other: Skin is warm and dry. Neuro Other: The patient was awake and alert. His mental status was clear. Cranial nerves are grossly intact. He moves his extremities normally. Seems grossly neurologically intact. Extrem Other: No calf swelling or tenderness. No peripheral edema. No asymmetry. Medications Administered Discontinued Medications Generic Name Dose Route Start Last Admin Trade Name Freq PRN Reason Stop Dose Admin Albuterol Sulfate 7.5 mg/ 10 mg 12/11/23 03:51 12/11/23 03:53 Albuterol Sulfate 2.5 mg INHALE 12/11/23 03:52 10 mg ONCE ONE Administration Albuterol Sulfate 7.5 mg/ 0 mg 12/11/23 04:55 12/11/23 04:57 Albuterol/Ipratropium 3 ml INHALE 12/11/23 04:56 10 each ONCE ONE Administration Prednisone 60 mg 12/11/23 03:34 12/11/23 04:19 Prednisone 20 Mg Tablet PO 12/11/23 03:35 60 mg ONCE ONE Administration Medical Decision Making Medical Decision Making [facility] Narrative: The patient is a 63-year-old male with a history of asthma who arrived looking very short of breath. He was tachypneic and tachycardic and seemed to be tripoding. He was given aggressive bronchodilator treatments. He was given 60 mg of prednisone. He was observed. Ultimately he felt significantly better and was looking much better. He felt that he was well enough for discharge. He says he feels he has a lot of experience with asthma and feels comfortable going home at this point. He will be given a prescription for additional prednisone over the next 5 days, 2 more days of 60 mg and then 3 days of 40 mg. Additionally I will write a prescription for budesonide-formoterol which you may use as both a maintenance inhaler and which you may also use when he is having worsening asthma symptoms as well. He gets his primary care through the [facility]. he has an appointment in January with a machine precision etcher at the [facility] in [place] and next week he has an appointment with an cardiology tech at the [facility] in [place] as well. He should return if worse. Critical Care Time Critical Care Time Critical Care Time: Yes Total Critical Care Time: 35 Attestation: The patient was critically ill with a high probability of imminent or life-threatening deterioration. ?I spent greater than 30 minutes of discontinuous time evaluating the patient, delivering critical care at the bedside, discussing evaluating data with consultants. ?Critical care time does not include time spent performing separately billable procedures or teaching. ?Time spent performing critical care with 35 minutes. Discharge Plan Discharge Clinical Impression: Asthma with acute exacerbation Patient Disposition: Home, Self-Care Additional Instructions: I have sent a prescription for a course of prednisone. You received a dose of prednisone this morning. Take your next dose early tomorrow morning. Additionally I have sent a prescription for a new inhaler. This inhaler combines a bronchodilator with a steroid. If this prescription is very expensive you do not need to pick it up. You may continue to use your regular albuterol and your nebulizers at home. If the prescription is not very expensive and you fill the prescription for the formoterol-budesonide inhaler (brand name Symbicort) then you can use this medication as both a maintenance inhaler by taking 1 puff 2 times a day on days when you are feeling good. You can also use it as a rescue inhaler by taking 2 puffs every 4 hours as needed. Please keep your appointment with your cardiology tech. Also stay in touch with your machine precision etcher for additional advice as needed. Also stay in touch with your regular doctor. Return to the emergency room if worse. Prescriptions: New prednisone 20 mg tablet 20 mg PO DAILY Qty: 12 0RF Rx Instructions: Take 3 tablets by mouth daily for 2 days then 2 tablets daily by mouth for 3 days. budesonide-formoterol 80-4.5 mcg/actuation HFA aerosol inhaler 1 inh inhalation BID Qty: 10.2 0RF No Action prednisone 20 mg tablet 40 mg PO DAILY 5 Days Qty: 10 0RF epinephrine 0.3 mg/0.3 mL auto-injector 0.3 mg IM Q10M PRN (Reason: anaphylaxis) Qty: 2 0RF Rx Instructions: for 2 doses Referrals: Atul Snowden [Physician] - (Asthma) Print Language: Swedish
[2023-12-11 03:50] VITALS: PULSE 98; RESP 22; O2SAT 93
[2023-12-11] MEDS: Albuterol Sulfate 7.5 MG, Albuterol Sulfate (0.083%) 2.5 MG 10 MG INHALE (03:53)
--- NOTE | 2023-12-11 04:14 | PC.NURSE ---
Addendum entered by Marcio Kim 12/11/23 04:21: pt tolerates po intake. to xray at this time. Original Note: lung sounds diminished and persistent cough, provider made aware with recommendation for cxr. ordered per md. pt is 94% on duoneb, nad at this time.
[2023-12-11 04:19] VITALS: PULSE 107; RESP 25; TEMP 36.5; O2SAT 94
[2023-12-11] MEDS: predniSONE 20 MG TABLET 60 MG PO (04:19)
[2023-12-11] MEDS: Albuterol Sulfate 7.5 MG, Albuterol/Iprat 2.5/0.5MG 3 ML 3 ML INHALE (04:57)
[2023-12-11 04:59] VITALS: PULSE 107; RESP 25; O2SAT 92
[2023-12-11 06:30] VITALS: BP 105/60; PULSE 100; RESP 19; TEMP 36.6; O2SAT 95
--- OUTSIDE RECORDS SUMMARY | 2023-12-15 07:14 | XMS_ITS | Patient Health Record ---
Author Organization [facility] Address [address] [place] [address] Care Team Providers Care Facilities Flight Check Pilot Name Role Phone Atul Snowden MD Primary Care Provider Theo Jose [phone] ALLERGIES Allergen (clinical drug ingredient) Drug/Non Drug Allergy documented on EMR Reaction Allergy Type Onset Date Status Keflex Unknown Drug Allergy Active MRI dye (uncoded) Unknown Allergy Ac tive IVP DYE (uncoded) Unknown Allergy Ac tive RESULTS Component Value Reference Range Notes Liver Fibrosis Pnl (Not yet reviewed by provider) Interpretation: Performing Lab:[facility], [address] [place] [phone] Notes/Report: Liver Fibrosis Score 0.19 Liver Fibrosis Stage F0 Liver Fibrosis Interpretation SEE NOTE no fibrosis Fibro Test Score (f) Metavir Score f>=0 and f<=0.21 : F0 (no fibrosis) f>0.21 and f<=0.27 : F0-F1 (no fibrosis) f>0.27 and f<=0.31 : F1 (minimal fibrosis) f>0.31 and f<=0.48 : F1-F2 (minimal fibrosis) f>0.48 and f<=0.58 : F2 (moderate fibrosis) f>0.58 and f<=0.72 : F3 (advanced fibrosis) f>0.72 and f<=0.74 : F3-F4 (advanced fibrosis) f>0.74 and f<=1.00 : F4 (severe fibrosis) Nec Inflam Act Score 0.13 Nec Inflam Act Grade A0 Nec Inflam Act Interpretation SEE NOTE no activity ActiTest Score (a) Metavir Score a>=0 and a<=0.17 : A0 (no activity) a>0.17 and a<=0.29 : A0-A1 (no activity) a>0.29 and a<=0.36 : A1 (minimal activity) a>0.36 and a<=0.52 : A1-A2 (minimal activity) a>0.52 and a<=0.60 : A2 (significant activity) a>0.60 and a<=0.62 : A2-A3 (significant activity) a>0.62 and a<=1.00 : A3 (severe activity) UDH-Djiku-9-Macroglobulin 175 106-279 mg/dL FIB-Haptoglobin 131 43-212 mg/dL FIB-Apolipoprotein A1 182 94-176 mg/dL FIB-Total Bilirubin 0.8 0.2-1.2 mg/dL FIB-GGT 17 3-70 U/L FIB-ALT 31 9-46 U/L Reference ID [id number] Footnote SEE NOTE The reliability of results is dependent on compliance with the preanalytical and analytical conditions recommended by [employer]. The tests have to be deferred for: acute hemolysis, acute hepatitis, acute inflammation, extra hepatic cholestasis. The advice of a specialist should be sought for interpretation in chronic hemolysis and Gilbert's syndrome. The test interpretation is not validated in liver transplant patients. Isolated extreme values of one of the components should lead to caution in interpreting the results. In case of discordance between a biopsy result and a test, it is recommended to seek the advice of a specialist. The causes of these discordances could be due to a flaw of the test or to a flaw in the biopsy: i.e. a liver biopsy has a 33% variability rate for one fibrosis stage. FibroTest is interpretable for chronic hepatitis B and C, alcoholic and non alcoholic steatosis. ActiTest is interpretable for chronic hepatitis B and C. The performance characteristics have been determined by [employer]. It has not been cleared or approved by the U.S. Food and Drug Administration. Performance characteristics refer to the analytical performance of the test. Petta, the associated logo, [employer] and all associated [employer] rosales are the registered trademarks of [employer]. All third democrat rosales - (R) and (TM) - are the property of their respective owners. (C) [id number] VULCUN. All rights reserved. THIS TEST WAS PERFORMED AT: [facility] [address] [place] [address] ADÁN LEYVA MD,PHD,JESÚS Prothrombin Time INR Reviewed date:11/23/2023 06:22:02 PM Interpretation: Performing Lab:[facility], [address] [place] [phone] Notes/Report: Prothrombin Time 12.3 11.1-13.3 SEC INTERNATIONAL NORM RATIO 1.0 0.9-1.1 INTERNATIONAL NORMALIZED RATIO (INR) REFERENCE RANGES Reference Range For patients not on anticoagulant therapy: 0.9 - 1.1 INR ranges for oral anticoagulant therapy: For prevention and treatment of venous thrombosis and pulmonary embolism: 2.0 - 3.0 For acute myocardial infarction with aspirin therapy: 2.0 - 3.0 For acute myocardial infarction without aspirin therapy: 3.0 - 4.0 For patients with mechanical prosthetic heart valves: 2.5 - 3.5 Ferritin Reviewed date:12/03/2023 11:57:16 PM Interpretation: Performing Lab:[facility], [address] [place] [phone] Notes/Report: Ferritin 444 20-250 ng/mL Alpha 1 Anti-trypsin Reviewed date:12/11/2023 04:02:59 PM Interpretation: Performing Lab:[facility], [address] [place] [phone] Notes/Report: Alpha 1 Anti-trypsin 166 83-199 mg/dL THIS TEST WAS PERFORMED AT: [facility] [address] [place] [phone] HARVEY JAEGER MD Mitochondrial Antibody Reviewed date:11/29/2023 08:57:56 AM Interpretation: Performing Lab:[facility], [address] [place] [phone] Notes/Report: Mitochondrial Antibodies NEGATIVE NEGATIVE The specimen was negative for cytoplasmic antibodies, however additional staining was observed suggesting the presence of Antinuclear Antibodies. Consider requesting order code 249, LEENA Screen, IFA with Reflex to Titer and Pattern, or order code [id number], LEENA Screen, IFA w/reflex Titer/Pattern, and Reflex to Multiplex 11 Ab [place], if clinically indicated. THIS TEST WAS PERFORMED AT: [facility] [address] [phone] HARVEY JAEGER MD Mitochondrial Ab Titer TNP Smooth Muscle Antibody Reviewed date:11/29/2023 08:57:50 AM Interpretation: Performing Lab:[address] [address] Notes/Report: Smooth Muscle Antibody <20 <20 U Reference Range: <20 U: Negative >or=20 U: Positive Antibodies recognizing actin are the main component of smooth muscle antibodies associated with auto- immune liver disease. Actin antibodies are found in approximately 75% of patients with autoimmune hepatitis (AIH) type 1, approximately 65% of patients with autoimmune cholangitis, approximately 30% of patients with primary biliary cirrhosis and approximately 2% of healthy controls. High values are closely correlated with AIH type 1. THIS TEST WAS PERFORMED AT: [facility]/[address] [address] BEREKET CAMILO MD,PHD Hepatitis B,C Profile Reviewed date:11/23/2023 06:23:40 PM Interpretation: Performing Lab:[address] [address] Notes/Report: Hepatitis B Surface Antibody NONREACTIVE Nonreactive Nonreactive: < 8.00 mIU/mL Hepatitis B Core Antibody Nonreactive Nonreactive Hepatitis C Antibody Nonreactive Nonreactive Antibodies to HCV not detected; does not exclude early acute HCV infection. Hepatitis B Surface Antigen Negative Negative Complete Blood Count Auto Di ff Reviewed date:11/23/2023 06:22:57 PM Interpretation: Performing Lab:[address] [phone] Notes/Report: White Blood Count 4.4 4.8-10.8 X10*3/uL Red Blood Count 4.55 4.60-5.80 X10*6/uL Hemoglobin 14.5 14.0-18.0 g/dl Hematocrit 41.3 42.0-52.0 % Mean Corpuscular Volume 90.8 80.0-98.0 fL Mean Corpuscular Hemoglobin 31.9 27.0-33.0 pg Mean Corpuscular HGB Conc 35.1 31.0-36.0 g/dl Red Cell Distribution Width 12.1 11.0-16.0 % Platelet Count 214 160-400 X10*3/uL Mean Platelet Volume 10.3 9.4-12.4 fL Neutrophils Percent Auto 67.7 45-73 % Imm Gran Pct Auto 0.2 0.0-0.4 % Lymphocytes Percent Auto 23.1 20-40 % Monocytes Percent Auto 4.3 2-11 % Eosinophils Percent Auto 3.8 0-4 % Basophils Percent Auto 0.9 0-2 % NRBC Pct Auto 0.0 0.0-0.2 /100WBC Neutrophils Absolute Auto 3.0 2.0-8.3 x10*3/u L Imm Gran Abs Auto 0.01 0.00-0.03 X10*3/uL Lymphocytes Absolute Auto 1.0 1.2-4.9 X10*3/u L Monocytes Absolute Auto 0.2 0.1-1.2 X10*3/uL Eosinophils Absolute Auto 0.2 0.0-0.4 X10*3/u L Basophils Absolute Auto 0.0 0.0-0.2 X10*3/uL NRBC Abs Auto 0.000 0.0-0.012 X10*3/uL Liver Panel Reviewed date:11/23/2023 06:22:21 PM Interpretation: Performing Lab:[facility], [address] [place] [phone] Notes/Report: Bilirubin Total 0.9 0.0-1.0 mg/dL Bilirubin Direct 0.3 0.0-0.5 mg/dL Aspartate Amino Transferase 26 5-37 U/L Alanine Aminotransferase 37 0-40 U/L Total Protein 6.9 6.5-8.0 g/dL Albumin Level 4.3 3.5-5.0 g/dL Alkaline Phosphatase 57 39-117 U/L IRON PROFILE Reviewed date:11/23/2023 06:22:13 PM Interpretation: Performing Lab:[facility], [address] [place] [phone] Notes/Report: Iron 115 45-160 mcg/dL Total Iron Binding Capacity 272 228-428 mcg/d L Percent Iron Saturation 42 15-50 % Unsaturated Iron Binding 157 Alpha Fetoprotein Reviewed date:12/11/2023 04:02:50 PM Interpretation: Performing Lab:[facility], [address] [place] [phone] Notes/Report: Alpha Fetoprotein 2.9 <6.1 ng/mL This test was performed using the Nicole Crow chemiluminescent method. Values obtained from different assay methods cannot be used interchangeably. AFP levels, regardless of value, should not be interpreted as absolute evidence of the presence or absence of disease. THIS TEST WAS PERFORMED AT: [facility] [address] [place] [phone] HARVEY JAEGER MD LEENA Reflex Titer and Pattern Reviewed date:11/25/2023 09:39:29 PM Interpretation: Performing Lab:[facility], [address] [place] [phone] Notes/Report: Anti Nuclear Antibody Screen NEGATIVE NEGATIVE LEENA IFA is a first line screen for detecting the presence of up to approximately 150 autoantibodies in various autoimmune diseases. A negative LEENA IFA result suggests an LEENA-associated autoimmune disease is not present at this time, but is not definitive. If there is high clinical suspicion for Sjogren's syndrome, testing for anti-SS-A/Ro antibody should be considered. Anti-Camilla-1 antibody should be considered for clinically suspected inflammatory myopathies. AC-0: Negative International Consensus on LEENA Patterns (https://doi.org/10.1515/c nci-9325-5486) For additional information, please refer to http://education.LoopPay.DivvyDown/faq/KVN189 (This link is being provided for informational/ educational purposes only.) THIS TEST WAS PERFORMED AT: [facility] [address] [place] [phone] HARVEY JAEGER MD Anti Nuclear Antibody Titer TNP Anti Nuclear Antibody Pattern TNP LEENA Titer 2 TNP LEENA Pattern 2 TNP LEENA Titer 3 TNP LEENA Pattern 3 TNP REASON FOR REFERRAL Referring Provider First Name Atul Referring Provider Last Name Sp Referring Provider Speciality Internal M edicine Referred Organization [facility] Referred Provider Theo Funez Referred Address [address] [place] [address],[place], [place],[address], Referred Provider Specialty Gastroentero logy General Notes Rubia Michelle 024 09:28:31 AM EDT > REFERRAL NUMBER [id number] AWAITING AUTHORIZATION FROM [facility] TO FAX THIS OVER FOR OFFICE VISIT WITH DR FUNEZ ON 11-22-2023 Referral Priority Routine MEDICATIONS Medication SIG (Take, Route, Frequency, Duration) Notes Start Date End Date Status Vyvanse Active Temazepam Active Albuterol Active IMMUNIZATIONS Vaccine Route Administration [...] Answer Notes Did you have a drink containing alcohol in the p ast year? No Points 0 Interpretation Negative PROBLEMS Problem Type ICD Code Onset Dates Problem Status W/U Status Risk SNOMED Code Notes Problem Gastroesophageal reflux disease, esophagitis presence not specified (K21.9) Active confirmed 360182891 Problem History of colon polyps (Z86.010) Active confirmed 714707202 Problem Encounter for screening for malignant neoplasm of colon (Z12.11) Active confirmed 736910533 Problem Family history of colon cancer (Z80.0) Active confirmed 286853889 Problem Diarrhea, unspecified type (R19.7) Active confirmed 52093381 Problem Irritable bowel syndrome (K58.9) Active confirmed Irritable bowel syndrome (50443639) Problem Abdominal pain, acute, generalized (R10.84) Active confirmed Generalized abdominal pain (882132385) Problem Gastritis (K29.70) Active confirmed Gas tritis (8487450) Problem Irritable bowel syndrome with diarrhea (K58.0) Active confirmed 600805483 Problem Abnormal MRI, liver (R93.2) Active confirmed Abnormal findings diagnostic imaging of liver and biliary tract (319776474) VITAL SIGNS Blood pressure diastolic 00 mm Hg 11/22/2023 Height 72 in 11/22/2023 Blood pressure systolic 00 mm Hg 11/22/2023 Weight 180 lbs 11/22/2023 BMI 24.41 kg/m2 11/22/2023 Encounters Encounter Location Date Provider Diagnosis [facility] [address] [place] [address] 11/22/2023 Theo Funez Abnormal MRI, liver R93.2 [facility] [address] [place] [address] 12/02/2023 Theo Funez ASSESSMENTS Encounter Date Diagnosis Assessment Notes Treatment Notes Treatment Clinical Notes 11/22/2023 Abnormal MRI, liver (ICD-10 - R93.2) Need MRI report [facility]ares 10/[address] and U/S at [facility] PLAN OF TREATMENT Pending Test Test Name Order Date CHEM 7 PROFILE 08/28/2020 BUN 09/30/2020 CREATININE 09/30/2020 LIVER PROFILE 11/22/2023 LIVER PROFILE 08/28/2020 AMYLASE 08/28/2020 LIPASE 08/28/2020 IRON + IBC (FE) 11/22/2023 CRP 08/28/2020 CBC w DIFF 11/22/2023 CBC w DIFF 08/28/2020 SED RATE (ESR) 08/28/2020 ALPHA-FETOPROTEIN,TUMOR MARKER CELIAC PANEL #10 08/28/2020 CELIAC PANEL #10 04/30/2020 HEMOCHROMATOSIS (C282Y) 11/22/2023 CT ABD & PELVIS WITH CONTRAST 08/28/2020 CT ABD & PELVIS WITH PO CONT ONLY 2020 FLUOR. ANTINUCLEAR AB SCREEN ([place]) 09/2023 TSH REFLEX FREE T4 08/28/2020 Liver Fibrosis Pnl 11/22/2023 Future Test Test Name Order Date UPPER GI ENDOSCOPY 11/06/2019 COLONOSCOPY 11/06/2019 Next Appt Details Provider Name:Theo Funez , 04/19/2024 10:20:00 AM, [address], [address], [place], [address], Insurance Providers Payer Name Payer Address Payer Phone Subscriber Number Group Number Insured Name Patient Relationship to Insured Coverage Start Date Coverage End Date [facility] [address] [place] [id number] BIANCA ACOSTA Self - patient is the insured MEDICAL (GENERAL) HISTORY Medical History History ICD Code Kidney stones Asthma Colonoscopies at age 49 and 54 with pati feliciano of polyps GERD-had a previous EGD 10 yrs ago Hx of Bipolar -stable off meds Denies IA,DM,CVA,Lung disease,renal dise ase EGD 10/2019--erosive gastriti s with biopsies negative for H. pylori. Small hiatal hernia but no esophagitis nor Cantu's esophagus Colonoscopy 10/2019-nonadenomatous polyps , no inflammatory bowel disease Presumed IBS as a cause of h is abdominal discomfort and chronic GI complaints--negative CT scan and celiac disease laboratories in spring Reported cirrhosis on an a October 2023 MRI at [facility] Surgical History Surgery Date(Month/Year) Varicose veins right leg removed Umbilical Hernia repair Spinal fusion Cholecystectomy > 5 yrs ago
== END 2023-12-11 06:31 | disposition home or self-care (01) ==
PROVIDERS: Emergency Provider Emergency Medicine
DX: J45.901 Unspecified asthma with (acute) exacerbation (principal); R00.0 Tachycardia, unspecified; R06.02 Shortness of breath; F12.90 Cannabis use, unspecified, uncomplicated
CPT/HCPCS: 71046; 94640; 99284

== ENCOUNTER 2024-05-02 07:53 | Outpatient (REF) | payer OTHER, SELFPAY ==
[2024-05-02 08:11] LABS: MANUAL DIFF FLAG NO
[2024-05-02 08:36] LABS: Basophils Percent Auto 0.9 % (0-2); Eosinophils Absolute Auto 0.3 X10*3/uL (0.0-0.4); Eosinophils Percent Auto 7.6 % (0-4); Hematocrit 42.1 % (42.0-52.0); Hemoglobin 14.2 g/dl (14.0-18.0); Imm Gran Abs Auto 0.01 X10*3/uL (0.00-0.03); Imm Gran Pct Auto 0.2 % (0.0-0.4); Lymphocytes Absolute Auto 1.6 X10*3/uL (1.2-4.9); Lymphocytes Percent Auto 35.9 % (20-40); Mean Corpuscular HGB Conc 33.7 g/dl (31.0-36.0); Mean Corpuscular Hemoglobin 30.1 pg (27.0-33.0); Mean Corpuscular Volume 89.4 fL (80.0-98.0); Mean Platelet Volume 10.2 fL (9.4-12.4); Monocytes Absolute Auto 0.3 X10*3/uL (0.1-1.2); Monocytes Percent Auto 6.3 % (2-11); Neutrophils Absolute Auto 2.2 x10*3/uL (2.0-8.3); Neutrophils Percent Auto 49.1 % (45-73); Platelet Count 211 X10*3/uL (160-400); Red Blood Count 4.71 X10*6/uL (4.60-5.80); White Blood Count 4.5 X10*3/uL (4.8-10.8)
[2024-05-02 08:45] LABS: INTERNATIONAL NORM RATIO 0.9 (0.9-1.1); Prothrombin Time 10.8 SEC (10.9-12.4)
[2024-05-02 08:47] LABS: Partial Thromboplastin Time 34.8 SEC (26.0-36.8)
[2024-05-02 08:57] LABS: Iron 63 mcg/dL (45-160); Percent Iron Saturation 25 % (15-50); Total Iron Binding Capacity 248 mcg/dL (228-428); Unsaturated Iron Binding 185 ug/dL
[2024-05-02 09:14] LABS: Ferritin 316 ng/mL (20-250)
== END 2024-05-02 07:54 | disposition home or self-care (01) ==
LOC: HO.LAB 07:53
PROVIDERS: PCP Internal Medicine; Visit Provider Internal Medicine
DX: K74.60 Unspecified cirrhosis of liver (principal); E83.19 Other disorders of iron metabolism
CPT/HCPCS: 36415; 82728; 83540; 85025; 85610; 85730

== ENCOUNTER 2024-05-08 08:34 | Day surgery (SDC) | payer OTHER, SELFPAY ==
[2024-05-08] VITALS (15 sets, daily range): BP systolic 98–154; BP diastolic 70–85; PULSE 61–88; RESP 11–17; TEMP 36.1–36.8; O2SAT 95–100
--- NOTE | ~2024-05-08 | US_ITS ---
Ultrasound-guided liver biopsy History: Elevated ferritin. Rule out hemochromatosis. Prior imaging concerning for cirrhosis. Procedure: Ultrasound-guided liver biopsy Risks and benefits and possible complications were discussed with the patient and consent form was signed. The abdomen was prepped and draped in usual sterile fashion. 1% lidocaine was used for anesthesia. A 17-gauge coaxial needle was inserted through the skin and soft tissues and into the right lobe of the liver. A total of 3, 18-gauge cores were performed. Permanent ultrasound images were archived. 2 Gelfoam torpedoes were inserted through the coaxial and administered into the biopsy tract and at the level of the capsule. The needle was then removed. The specimens were placed in formalin and sent to pathology. The patient tolerated the procedure well. The procedure was performed under moderate sedation with a dedicated nurse for monitoring of vital signs. The patient received a total of 1.5 Versed, and 75 Fentanyl. Moderate sedation time: 15 min This procedure was performed by Louis Martinez PA-C, and directly supervised by Dr. Peters. US/US biopsy liver Impression: Ultrasound-guided liver biopsy Electronically signed by: Kai Maloney MD 05/08/2024 04:[address] [facility]
--- NOTE | 2024-05-08 10:41 | MHC.SHP ---
Pre-Procedural Eval Section A - 24 Hr Update-Section A only Date of Service: 05/08/24 Section B - Complete if H&P > 30 days Chief Complaint: liver bx, cirrhosis Details of Present Illness: 63 y/o man with elevated ferritin and imaging concerning for cirrhosis. Gi requests a liver biopsy. Relevant Family History (Specify if Yes): No Relevant Social History: None Present Medications: see Short Stay Collaborative assessment Medical History: No relevant PMH History of Previous Operations: No relevant previous surgery Allergies: Allergies Allergy/AdvReac Type Severity Reaction Status Date / Time Iodinated Contrast Media Allergy Unknown ASTHMATIC Verified 12/11/23 03:38 [IV DYE, IODINE CONTAINING CONTRAST ] From KEFLEX Allergy Unknown ASTHMATIC Uncoded 12/11/23 03:38 Review of Systems Sugical H&P ROS: Negative: Constitution, Cardiovascular, Respiratory and Gastrointestinal Exam Surgical H&P Exam: Normal: Heart, Normal: Lungs, Normal: Abdomen, Normal: Skin and Normal: Neurological Plan 63 y/o man with elevated ferritin and imaging concerning for cirrhosis. Gi requests a liver biopsy. -Non targeted liver biopsy Time Spent With Patient Time: Total time managing care of this patient today ____ minutes.
[2024-05-08] MEDS: fentaNYL citrate/PF 100 MCG/2 ML VIAL 50 MCG IVPUSH (11:09)
[2024-05-08] MEDS: Midazolam HCl 5 MG/ML VIAL 1 MG IVPUSH (11:09)
[2024-05-08] MEDS: Midazolam HCl 5 MG/ML VIAL IVPUSH (11:16)
[2024-05-08] MEDS: fentaNYL citrate/PF 100 MCG/2 ML VIAL 25 MCG IVPUSH (11:16)
--- NOTE | 2024-05-08 14:04 | HO.INF ---
patient declined to get into [facility] van and per the patient he is walking to his fathers home that is one street over from the hospital. hospital staff attempted to talk patient to take our van
== END 2024-05-08 13:48 | disposition home or self-care (01) ==
PROVIDERS: Physician Assistant Surgical; PCP Internal Medicine; Visit Provider Internal Medicine
DX: K74.60 Unspecified cirrhosis of liver (principal); E83.119 Hemochromatosis, unspecified; J45.909 Unspecified asthma, uncomplicated; Z91.041 Radiographic dye allergy status; Z88.8 Allergy status to other drugs, medicaments and biological substances
CPT/HCPCS: 47000; 76942; 86850; 86900; 86901; 88307; 88313; J2003; J2250; J2310; J3010

== ENCOUNTER → 2024-05-08 11:05 | Outpatient (BNV) | payer OTHER, SELFPAY | PROVIDERS: PCP Internal Medicine; Visit Provider Physician Assistant Surgical | DX: R79.0 Abnormal level of blood mineral (principal) | CPT/HCPCS: 47000; 76942 ==

== ENCOUNTER 2024-08-22 06:10 | Day surgery (SDC) | payer OTHER, SELFPAY ==
[2024-08-20 12:34] VITALS: BMI 23.5
--- NOTE | 2024-08-21 12:40 | P.CONAN_ITS ---
Documented by User: Meghana Garcia NP 08/21/24 12:40 HPI - Anesthesia Eval Consult details Narrative: 64yo M for Colonoscopy PMFSH Active Problems Active Problems: All Active Problems Asthma (Acute) Past Medical History Medical History (Updated 08/22/24 @ 06:47 by Keena Farley, RN) Cirrhosis Hiatal hernia Hx of bipolar disorder GERD (gastroesophageal reflux disease) Kidney stones Asthma Surgical History Surgical History (Updated 08/22/24 @ 06:49 by Keena Farley RN) Hx of cholecystectomy History of surgery on lower extremity Hx of spinal fusion Hx of umbilical hernia repair History of esophagogastroduodenoscopy (EGD) H/O colonoscopy Social History Social History (Updated 05/03/24 @ 17:10 by Oneyda Simmons RN) Patient Tobacco Use Status: Former Tobacco user Second Hand Smoke Exposure: No Substance Use Type: Marijuana Substance Use Type Other:: smoked-last on 08/21 Substance Use Frequency: Daily Are you DNR?: No Advance Directives: No Advance Directives Information Provided: Yes Meds Allergies Allergy/AdvReac Type Severity Reaction Status Date / Time Iodinated Contrast Media Allergy Unknown ASTHMATIC Verified 08/22/24 06:49 [IV DYE, IODINE CONTAINING CONTRAST ] From KEFLEX Allergy Unknown ASTHMATIC Uncoded 12/11/23 03:38 Home Medications ?Medication ?Instructions ?Recorded ?Confirmed ?Last Taken ?Type Vyvanse 08/20/24 Unknown History albuterol sulfate 90 mcg/actuation 1 inh inhalation QID PRN Shortness 08/20/24 08/20/24 Unknown History aerosol inhaler Of Breath Or Wheezing montelukast 10 mg tablet 10 mg PO BEDTIME 08/20/24 08/20/24 Unknown History temazepam 7.5 mg capsule 7.5 mg PO BEDTIME PRN Insomnia 08/20/24 Unknown History oxcarbazepine 150 mg tablet 150 mg PO BID 08/22/24 08/22/24 Unknown History Exam Height,Weight and Vital Signs: Height 6 ft Weight 78.471 kg Assessment and Plan Assessment Anesthesia Assessment: Chart Reviewed Documented by User: Nagi John MD 08/22/24 07:33 [facility] Past Medical History Medical History (Updated 08/22/24 @ 06:47 by Keena Farley RN) Cirrhosis Hiatal hernia Hx of bipolar disorder GERD (gastroesophageal reflux disease) Kidney stones Asthma Family History Family history of problems with anesthesia: No Surgical History Surgical History (Updated 08/22/24 @ 06:49 by Keena Farley RN) Hx of cholecystectomy History of surgery on lower extremity Hx of spinal fusion Hx of umbilical hernia repair History of esophagogastroduodenoscopy (EGD) H/O colonoscopy History of Problems with Anesthesia: No Social History Social History (Updated 05/03/24 @ 17:10 by Oneyda Simmons RN) Patient Tobacco Use Status: Former Tobacco user Second Hand Smoke Exposure: No Substance Use Type: Marijuana Substance Use Type Other:: smoked-last on 08/21 Substance Use Frequency: Daily Are you DNR?: No Advance Directives: No Advance Directives Information Provided: Yes Meds Allergies Allergy/AdvReac Type Severity Reaction Status Date / Time Iodinated Contrast Media Allergy Unknown ASTHMATIC Verified 08/22/24 06:49 [IV DYE, IODINE CONTAINING CONTRAST ] From KEFLEX Allergy Unknown ASTHMATIC Uncoded 12/11/23 03:38 Home Medications ?Medication ?Instructions ?Recorded ?Confirmed ?Last Taken ?Type Vyvanse 08/20/24 Unknown History albuterol sulfate 90 mcg/actuation 1 inh inhalation QID PRN Shortness 08/20/24 08/20/24 Unknown History aerosol inhaler Of Breath Or Wheezing montelukast 10 mg tablet 10 mg PO BEDTIME 08/20/24 08/20/24 Unknown History temazepam 7.5 mg capsule 7.5 mg PO BEDTIME PRN Insomnia 08/20/24 Unknown History oxcarbazepine 150 mg tablet 150 mg PO BID 08/22/24 08/22/24 Unknown History Exam Airway Mallampati Class: I TM Dist: >3cm Neck ROM: Full Loose/Missing/Broken Teeth: Yes, Upper and Lower Heart: ok Lungs: ok Assessment and Plan Assessment Anesthesia Assessment: Anesthesia Plan Discussed Final Anesthetic Review Family History of Problems with Anesthesia: No History of Problems with Anesthesia: No NPO: Yes ASA Class: III Final Preanesthetic Review: No Changes in Pt Med Stat, Meds/Allgs Chart Reviewed, Consent Obtained/Reviewed and Anes Risks/Benef Reviewed Patient Risk: Intermediate Procedure Risk: Low Anesthetic Plan Anesthetic Plan: MAC: and Agree w/ Assess. and Plan Disposition: Standard PACU
[2024-08-22 06:51] VITALS: BP 102/72; PULSE 69; RESP 15; TEMP 36.7; O2SAT 95; BMI 24.3
[2024-08-22] MEDS: Lactated Ringers 1,000 ML 100 ML IVCONT (07:10)
[2024-08-22 08:35] VITALS: BP 83/58; PULSE 60; RESP 17; TEMP 36.2; O2SAT 96
--- NOTE | 2024-08-22 08:40 | P.BOP_ITS ---
Brief Operative Note Date of Service: 08/22/24 Pre-op diagnosis: Screening Post-op diagnosis: other (Diverticulosis) Procedure: Colonoscopy to the cecum Surgeon: Theo Diaz MD Anesthesia: MAC Was an Refrigeration Installer used for this Procedure?: No Estimated blood loss (mL): 0 Pathology: none sent Condition: stable Disposition: PACU
[2024-08-22 08:50] VITALS: BP 101/66; PULSE 65; RESP 16; TEMP 36.4; O2SAT 98
--- NOTE | 2024-08-22 08:56 | OP_ITS ---
DATE OF SERVICE: 08/22/2024 SURGEON: Theo Diaz MD INDICATIONS: The patient presents for evaluation of colorectal cancer screening, personal history of colon polyps, family history of colon cancer, and colorectal cancer screening. Full consent obtained from him for this, including risks of bleeding and perforation. PREOPERATIVE DIAGNOSIS: POSTOPERATIVE DIAGNOSIS: PROCEDURE PERFORMED: Colonoscopy to cecum. ESTIMATED BLOOD LOSS: COMPLICATIONS: ANESTHESIA: Medication used, monitored anesthesia care. ASSISTANTS: SPECIMENS: PREOPERATIVE DIAGNOSES: Colorectal cancer screening, personal history of colon polyps, and family history of colon cancer. POSTOPERATIVE DIAGNOSES: Colorectal cancer screening, personal history of colon polyps, family history of colon cancer, diverticulosis, and internal hemorrhoids. DESCRIPTION OF PROCEDURE: The patient was placed in left lateral decubitus position. The digital rectal exam revealed no abnormalities. The Olympus video pediatric colonoscope was entered into the rectum and was advanced to the cecum. Advancement was somewhat difficult due to a fair amount of retained liquid and semi solid stool. However, once in the cecum, I did identify the cecal pouch with appendiceal orifice once irrigation and suctioning were completed. The cecum, appendiceal orifice, and ileocecal valve appeared normal. The scope was then slowly withdrawn assessing all mucosal surfaces carefully. Preparation was good throughout the colon, although did require copious irrigation and suctioning. I did not visualize any sign of polyps, colitis, nor angiodysplasia. There was a mild amount of sigmoid diverticulosis. In the rectum, scope was retroflexed visualizing internal hemorrhoids, but no other pathology. The rectal mucosa appeared normal. Scope was straightened and withdrawn from the patient. He tolerated the procedure well and was returned to the recovery area in stable condition. IMPRESSION: 1. Diverticulosis. 2. Internal hemorrhoids. PLAN: Given the patient's family history and his previous history of polyps, I would recommend a repeat colonoscopy in 5 years for further screening and surveillance. He did have a liver biopsy recently due to a question of cirrhosis and this biopsy was described as normal and without any sign of liver disease. As such, he will see me on a p.r.n. basis. MD ANNETTE Rubi/DIEGO / [id number]
== END 2024-08-22 09:30 | disposition home or self-care (01) ==
PROVIDERS: PCP Internal Medicine; Visit Provider Internal Medicine
PROC: 0DJD8ZZ Inspection of Lower Intestinal Tract, Via Natural or Artificial Opening Endoscopic (ICD-10-PCS; CPT 45378; principal; 2024-08-22 07:30)
DX: Z12.11 Encounter for screening for malignant neoplasm of colon (principal); Z86.0101 Personal history of adenomatous and serrated colon polyps; Z80.0 Family history of malignant neoplasm of digestive organs; K57.30 Diverticulosis of large intestine without perforation or abscess without bleeding; K64.8 Other hemorrhoids; K58.0 Irritable bowel syndrome with diarrhea; K74.60 Unspecified cirrhosis of liver; R93.2 Abnormal findings on diagnostic imaging of liver and biliary tract; K21.9 Gastro-esophageal reflux disease without esophagitis; J45.909 Unspecified asthma, uncomplicated; E83.19 Other disorders of iron metabolism; Z87.442 Personal history of urinary calculi; Z79.899 Other long term (current) drug therapy; Z90.49 Acquired absence of other specified parts of digestive tract; Z98.1 Arthrodesis status; Z98.890 Other specified postprocedural states
CPT/HCPCS: 45378; J2003; J2704